=== PATIENT | female | born 1930 | race Caucasian/White ===

== ENCOUNTER 2017-07-16 14:08 | Observation (INO) | payer OTHER ==
--- NOTE | 2017-07-16 14:34 | CPEKG ---
Heart Rate: 79 RR Interval: 759 P-R Interval: 240 QRSD Interval: 160 QT Interval: 432 QTC Interval: 496 P [place]: 32 QRS [place]: 67 T Wave [place]: -28 EKG Severity - ABNORMAL ECG - EKG Impression: POSSIBLE ATRIAL ARRHYTHMIA, A-RATE 214 EKG Impression: RIGHT BUNDLE BRANCH BLOCK Electronically Signed By: Gelacio Brandt 16-Jul-2017 15:58:35
[2017-07-16 15:01] LABS: % IMMATURE GRANULYOCYTES 0.6 % (0.0-1.1); ABSOLUTE IMMATURE GRANULOCYTES 0.12 10^3/uL (0.00-0.10); ADD DIFF? NO; ADD MORPH? NO; ADD SCAN? NO; ATYPICAL LYMPHOCYTE FLAG 0 (0-99); FRAGMENT RBC FLAG 10 (0-99); HEMATOCRIT 40.4 % (38.0-47.0); HEMOGLOBIN 13.8 g/dL (12.6-16.3); LEFT SHIFT FLG 0 (0-99); LIPEMIA HEMOLYSIS FLAG 90 (0-99); MEAN CELL HEMOGLOBIN 31.1 pg (27.9-34.1); MEAN CELL HEMOGLOBIN CONCENTR. 34.2 g/dL (32.4-36.7); MEAN PLATELET VOLUME 10.8 fL (8.7-11.7); PLATELET CLUMPS FLAG 10 (0-99); PLATELET COUNT 234 10^3/uL (150-400); RED BLOOD CELL COUNT 4.44 10^6/uL (4.18-5.33); RED CELL DISTRIBUTION WIDTH 13.2 % (11.5-15.2)
[2017-07-16 15:04] LABS: ANION GAP 12 mEq/L (8-16); CALCIUM 9.5 mg/dL (8.5-10.4); CARBON DIOXIDE 22 mEq/l (22-31); CHLORIDE 106 mEq/L (97-110); CREATININE 1.1 mg/dL (0.6-1.0); GLOMERULAR FILTRATION RATE 47; GLUCOSE 144 mg/dL (70-100); POTASSIUM 4.8 mEq/L (3.5-5.2); SODIUM 140 mEq/L (134-144)
[2017-07-16 15:16] LABS: TROPONIN I 0.013 ng/mL (0.000-0.034)
--- NOTE | 2017-07-16 15:45 | EDPHY ---
H & P Stated Complaint: SOB and chest tightness beginning this am Time Seen by Provider: 07/16/17 14:31 HPI/ROS: CHIEF COMPLAINT: Dyspnea HISTORY OF PRESENT ILLNESS: The patient presents to the ED with a 1 day history of dyspnea. The patient did have some chest discomfort and elevated blood pressure prior to arrival. The patient has a history of known coronary artery disease. She is status post CABG approximately 24 years ago. The patient did have a myocardial infarction a little over a year ago and was told that she is not a candidate for PCI therapy. The patient has had a slight cough today. She denies asymmetric calf pain or swelling. The patient denies fever. She denies dysuria. She denies abdominal pain or significant weight gain. The patient does use home oxygen and did increase her oxygen use today. REVIEW OF SYSTEMS: A comprehensive 10 point review of systems is otherwise negative aside from elements mentioned in the history of present illness. Source: Patient, Family Exam Limitations: No limitations - Personal History Current Tetanus/Diphtheria Vaccine: Unsure - Medical/Surgical History Hx Asthma: No Hx Chronic Respiratory Disease: No Hx Diabetes: No Hx Cardiac Disease: Yes Hx Renal Disease: Yes Hx Cirrhosis: No Hx Alcoholism: No Hx HIV/AIDS: No Hx Splenectomy or Spleen Trauma: No Other PMH: PMH- CAD, M1 02/16, HTN, COPD, 1 working kidney. PSH- CABG, bi-lat HIP's (with hardware) REPLACEMENT. HYSTERECTOMY,CHOLY, APPY, sleep apnea, chf w / le edema - Social History Smoking Status: Never smoked - Physical Exam Exam: General Appearance: Obese female, no acute distress Eyes: Pupils equal and round no pallor or injection ENT, Mouth: Moist mucous membranes Respiratory: Scant expiratory wheezing Cardiovascular: Regular rate and rhythm Gastrointestinal: Abdomen is soft and nontender, no masses, bowel sounds normal Neurological: A&O, normal motor function, normal sensory exam, normal cranial nerves Skin: Warm and dry, no rashes Musculoskeletal: Neck is supple nontender Extremities: symmetrical, full range of motion Constitutional: Initial Vital Signs Temperature (C) 36.8 C 07/16/17 14:16 Heart Rate 81 07/16/17 14:16 Respiratory Rate 18 07/16/17 14:16 Blood Pressure 124/59 H 07/16/17 14:16 O2 Sat (%) 91 L 07/16/17 14:16 O2 Delivery Mode Nasal Cannula O2 (L/minute) 2 Allergies/Adverse Reactions: morphine Allergy (Verified 06/24/16 19:46) NAUSEA Penicillins Allergy (Verified 06/24/16 19:46) Rash Home Medications: Medication Instructions Recorded Aspirin [Aspirin 325 mg (*)] 325 mg PO DAILY 02/13/14 Isosorbide Mononitrate [Imdur 30 30 mg PO DAILY 02/13/14 mg (*)] Carvedilol 12.5 mg PO BIDMEAL 06/24/16 Herbals/Supplements -Info Only 1 ea PO DAILY 06/24/16 hydrALAZINE [Apresoline 10 mg (*)] 10 mg PO BIDMEAL 06/24/16 Nitroglycerin 0.4 mg SL Q5M PRN #100 tab 06/26/16 Medical Decision Making - Diagnostics EKG Interpretation: EKG: Complete interpretation has been separately recorded in the [facility] archive. Summary impression: Sinus rhythm, right bundle branch block Imaging Results: Imaging Impressions Chest X-Ray 07/16/17 15:34 Impression: 1. Postoperative changes from previous open heart surgery. 2. Mild prominent interstitial markings at the lung bases posteriorly. This could be related to mild dependent edema. ED Course/Re-evaluation: The patient presents to the ED for evaluation of dyspnea, improved chest pain and generalized weakness. The patient reportedly did have markedly elevated blood pressure earlier today at home in the 220/100 range. The patient arrives to the emergency department with an improved blood pressure. The patient was noted to be mildly hypoxemic. She does use oxygen as needed at night. The patient's chest x-ray demonstrates mild pulmonary venous congestion consistent with her exam. The patient's EKG demonstrates no evidence of ST segment elevation and her initial troponin is normal. The patient's proBNP level is elevated at 5000. The patient did receive 20 mg of IV Lasix in the emergency department. She will be admitted to the hospital for observation of her blood pressure and response to diuretic therapy. The patient did have some chest pain earlier today which resolved. Consultation was made with the hospitalist service at 5:00 p.m.. The patient will be admitted by Dr. Rojas Differential Diagnosis: Differential diagnosis considered includes congestive heart failure, pneumonia, arrhythmia, anemia, metabolic abnormality - Data Points Laboratory Results: Laboratory Results 07/16/17 14:40 07/16/17 14:40 07/16/17 07/16/17 14:40 14:40 WBC 20.02 10^3/uL H 10^3/uL (3.80-9.50) RBC 4.44 10^6/uL 10^6/uL (4.18-5.33) Hgb 13.8 g/dL g/dL (12.6-16.3) Hct 40.4 % % (38.0-47.0) MCV 91.0 fL fL (81.5-99.8) MCH 31.1 pg pg (27.9-34.1) MCHC 34.2 g/dL g/dL (32.4-36.7) RDW 13.2 % % (11.5-15.2) Plt Count 234 10^3/uL 10^3/uL (150-400) MPV 10.8 fL fL (8.7-11.7) Neut % (Auto) 89.9 % H % (39.3-74.2) Lymph % (Auto) 3.9 % L % (15.0-45.0) [place] % (Auto) 4.4 % L % (4.5-13.0) Eos % (Auto) 0.7 % % (0.6-7.6) Baso % (Auto) 0.5 % % (0.3-1.7) Nucleat RBC Rel Count 0.0 % % (0.0-0.2) Absolute Neuts (auto) 17.98 10^3/uL H 10^3/uL (1.70-6.50) Absolute Lymphs (auto) 0.79 10^3/uL L 10^3/uL (1.00-3.00) Absolute Monos (auto) 0.89 10^3/uL H 10^3/uL (0.30-0.80) Absolute Eos (auto) 0.14 10^3/uL 10^3/uL (0.03-0.40) Absolute Basos (auto) 0.10 10^3/uL 10^3/uL (0.02-0.10) Absolute Nucleated RBC 0.00 10^3/uL 10^3/uL (0-0.01) Immature Gran % 0.6 % % (0.0-1.1) Immature Gran # 0.12 10^3/uL H 10^3/uL (0.00-0.10) Sodium 140 mEq/L mEq/L (134-144) Potassium 4.8 mEq/L mEq/L (3.5-5.2) Chloride 106 mEq/L mEq/L (97-110) Carbon Dioxide 22 mEq/l mEq/l (22-31) Anion Gap 12 mEq/L mEq/L (8-16) BUN 32 mg/dL H mg/dL (7-23) Creatinine 1.1 mg/dL H mg/dL (0.6-1.0) Estimated GFR 47 Glucose 144 mg/dL H mg/dL (70-100) Calcium 9.5 mg/dL mg/dL (8.5-10.4) Troponin I 0.013 ng/mL ng/mL (0.000-0.034) NT-Pro-B Natriuret Pep 5580 pg/mL H pg/mL (0-450) Departure - Departure Disposition: [facility] Acute Clinical Impression: Congestive heart failure, Hypertension
[2017-07-16] MEDS ORDERED: FUROSEMIDE 20 MG/2 ML VIAL IVP ONE (16:51)
[2017-07-16] MEDS ORDERED: ACETAMINOPHEN 325 MG TAB PO PRN (17:17)
[2017-07-16] MEDS ORDERED: ONDANSETRON DISINTEGRATING 4 MG TAB PO PRN (17:17)
[2017-07-16] MEDS ORDERED: ONDANSETRON 4 MG/2 ML VIAL IVP PRN (17:17)
[2017-07-16] MEDS ORDERED: NITROGLYCERIN 0.4 MG BTL SL PRN (17:34)
--- NOTE | 2017-07-16 18:11 | PDGENHP ---
History and Physical - Chief Complaint Acute shortness of breath - History of Present Illness Primary care provider: Dr. Kim Boggs Primary petrophysicist: Dr. Eric White HPI: 87-year-old female presenting with acute shortness of breath characterized as visible dyspnea with associated diffuse chest discomfort and nonproductive cough occurring over the past several days, and acutely worsening on the day of this presentation. Shortness of breath is somewhat alleviated by putting on supplemental oxygen, and was somewhat exacerbated by a significant amount of physical activity yesterday. On the day of this presentation, the patient notes some myalgias, chills, elevated systolic blood pressure around 10: 00 a.m. of approximately 215. She had otherwise taken all of her home medications. The patient's daughter does note that the engaged in an abnormally high level of physical exertion on the day prior to this presentation. The patient has noted chronic lower extremity edema, left greater than right, with mild increase in visible veins in the left ankle. History Information - Allergies/Home Medication List Allergies/Adverse Reactions: morphine Allergy (Verified 06/24/16 19:46) NAUSEA Penicillins Allergy (Verified 06/24/16 19:46) Rash Home Medications: Aspirin [Aspirin 325 mg (*)] 325 mg PO HS 02/13/14 [Last Taken 07/16/17 08:00] Carvedilol 12.5 mg PO BIDMEAL 06/24/16 [Last Taken 07/16/17 08:00] hydrALAZINE [Apresoline 10 mg (*)] 10 mg PO BIDMEAL 06/24/16 [Last Taken 08:00] Isosorbide Mononitrate [Imdur 30 mg (*)] 30 mg PO DAILY 07/16/17 [Last Taken 06/22 08:00] Multivitamins [Multivitamin (*)] 1 tab PO DAILY 07/16/17 [Last Taken 07/16/17 08 :00] I have personally reviewed and updated: family history, medical history, social history, surgical history - Past Medical History coronary artery disease ( With CABG approximately 20 years ago and subsequent non ST elevation myocardial infarction in 2013, patient declined cardiac catheterization at that time elected for medical management), CHF ( diastolic, chronic), hypertension Additional medical history: chronic kidney disease stage 3 with baseline creatinine 1.2-1.3 ; pulmonary hypertension - Surgical History Reports: coronary bypass surgery ( approximately 20 years ago) Additional surgical history: right total hip replacement - Family History Additional family history: no coronary disease, no recent sick family contacts - Social History Smoking Status: Never smoked Alcohol Use: None Drug Use: None Additional social history: independent in her ADLs, daughter lives locally Review of Systems Review of Systems: ROS: 10pt was reviewed & negative except for what was stated in HPI & below Constitutional: Reports: chills, weakness Cardiac: Reports: chest pain Respiratory: Reports: cough, shortness of breath Physical Exam Physical Exam: Temp Pulse Resp BP Pulse Ox 36.8 C 78 18 162/78 H 96 07/16/17 14:16 07/16/17 16:50 07/16/17 16:50 07/16/17 17:43 07/16/17 16:50 Constitutional: no apparent distress, not in pain, other (Aged appearing), No uncomfortable Eyes: PERRL, anicteric sclera, EOMI Ears, Nose, Mouth, Throat: moist mucous membranes, ears appear normal, no oral mucosal ulcers, hard of hearing Cardiovascular: systolic murmur (1/6 systolic murmur at the sternum, distant heart sounds), edema (1+ bilateral lower extremity edema, left greater than right), No irregularly irregular, No tachycardia Respiratory: inspiratory crackles (Bilateral bases), No reduced air movement, No expiratory wheeze, No bronchial breath sounds, No respiratory distress Gastrointestinal: normoactive bowel sounds, soft, non-tender abdomen, no palpable masses, No distension Genitourinary: no bladder fullness, no bladder tenderness Neurologic: AAOx3, sensation intact bilaterally, No weakness, No facial droop Psychiatric: interacting appropriately, not anxious, not encephalopathic, thought process linear Lab Data & Imaging Review 07/16/17 14:40 07/16/17 14:40 WBC 20.02 10^3/uL (3.80-9.50) H 07/16/17 14:40 RBC 4.44 10^6/uL (4.18-5.33) 07/16/17 14:40 Hgb 13.8 g/dL (12.6-16.3) 07/16/17 14:40 Hct 40.4 % (38.0-47.0) 07/16/17 14:40 MCV 91.0 fL (81.5-99.8) 07/16/17 14:40 MCH 31.1 pg (27.9-34.1) 07/16/17 14:40 MCHC 34.2 g/dL (32.4-36.7) 07/16/17 14:40 RDW 13.2 % (11.5-15.2) 07/16/17 14:40 Plt Count 234 10^3/uL (150-400) 07/16/17 14:40 MPV 10.8 fL (8.7-11.7) 07/16/17 14:40 Neut % (Auto) 89.9 % (39.3-74.2) H 07/16/17 14:40 Lymph % (Auto) 3.9 % (15.0-45.0) L 07/16/17 14:40 [place] % (Auto) 4.4 % (4.5-13.0) L 07/16/17 14:40 Eos % (Auto) 0.7 % (0.6-7.6) 07/16/17 14:40 Baso % (Auto) 0.5 % (0.3-1.7) 07/16/17 14:40 Nucleat RBC Rel Count 0.0 % (0.0-0.2) 07/16/17 14:40 Absolute Neuts (auto) 17.98 10^3/uL (1.70-6.50) H 07/16/17 14:40 Absolute Lymphs (auto) 0.79 10^3/uL (1.00-3.00) L 07/16/17 14:40 Absolute Monos (auto) 0.89 10^3/uL (0.30-0.80) H 07/16/17 14:40 Absolute Eos (auto) 0.14 10^3/uL (0.03-0.40) 07/16/17 14:40 Absolute Basos (auto) 0.10 10^3/uL (0.02-0.10) 07/16/17 14:40 Absolute Nucleated RBC 0.00 10^3/uL (0-0.01) 07/16/17 14:40 Immature Gran % 0.6 % (0.0-1.1) 07/16/17 14:40 Immature Gran # 0.12 10^3/uL (0.00-0.10) H 07/16/17 14:40 Sodium 140 mEq/L (134-144) 07/16/17 14:40 Potassium 4.8 mEq/L (3.5-5.2) 07/16/17 14:40 Chloride 106 mEq/L (97-110) 07/16/17 14:40 Carbon Dioxide 22 mEq/l (22-31) 07/16/17 14:40 Anion Gap 12 mEq/L (8-16) 07/16/17 14:40 BUN 32 mg/dL (7-23) H 07/16/17 14:40 Creatinine 1.1 mg/dL (0.6-1.0) H 07/16/17 14:40 Estimated GFR 47 07/16/17 14:40 Glucose 144 mg/dL (70-100) H 07/16/17 14:40 Calcium 9.5 mg/dL (8.5-10.4) 07/16/17 14:40 Troponin I 0.013 ng/mL (0.000-0.034) 07/16/17 14:40 NT-Pro-B Natriuret Pep 5580 pg/mL (0-450) H 07/16/17 14:40 Visualized and Interpreted Chest x-ray results: Yes Chest X-Ray results: other (Bilateral interstitial infiltrates) Visualized and Interpreted EKG results: Yes EKG Interpretation: Positive for: other (Normal sinus mechanism with a 1st degree AV block, right bundle branch block) Assessment & Plan Assessment: 87-year-old female presents with acute diastolic congestive heart failure exacerbation in the setting of possible viral URI Plan: 1. Acute diastolic congestive heart failure exacerbation. Evidenced by bilateral lower extremity edema, interstitial infiltrates on chest x-ray, BNP of 5500, recently uncontrolled hypertension -patient has historically been on a diuretic but has not been on 1 recently, reinitiate Lasix low-dose at 20 mg twice daily after receiving 40 mg IV Lasix this evening -monitor strict I&Os, daily weights, gauge effect -given the patient has elected not to proceed with any further cardiac intervention, the utility of an echocardiogram is relatively low at this time and supportive care with diuretics may be more appropriate -recommend establishing the patient with outpatient transitional care for additional assistance -continue monitoring electrolytes -get D-dimer to evaluate edema, positive get lower extremity ultrasound 2. Possible upper respiratory tract infection. Acute, new problem this provider, further workup indicated. Symptoms including myalgias, chills, weakness, with recently elevated white blood cell count and neutrophil predominance, suggest possible recent URI -reviewed outside records including 06/25/2016 white blood cell count, elevated at 11,400 thousand four hundred, indicating chronic leukocytosis, but without this degree of elevation -get respiratory viral panel at this time 3. Coronary artery disease. Chronic, status post non ST-elevation myocardial infarction in 2013, patient electing for no further cardiac evaluation -continue aspirin, beta-kurtis 4. Hypertension. Chronic, reviewed outside records including 08/26/[address] Otis Waldron, patient experienced hypertensive emergency but elected for no further intervention after blood pressure was effectively treated, she was discharged to a penitentiary facility at that time 5. COPD. Chronic, the patient does not have a history of chronic hypoxic respiratory failure, per patient and her daughter, she does not utilize oxygen at baseline -continue attempts to wean supplemental oxygen 6. Chronic kidney disease stage 3. Baseline creatinine is 1.2-1.3, monitor closely Diet. Cardiac Prophylaxis. High risk patient, Lovenox 30 Code. Do not resuscitate, daughter is MD [place] Disposition. Anticipated discharge is 07/17/2017, pending further workup and treatment as outlined above. Patient will be reassessed by therapy modalities to see if she requires complete assistance with ADLs comma may require penitentiary facility for rehab. I have discussed patient's presentation with Dr. Luis Alfredo Brandt, we both agree the patient requires further workup at this time.
[2017-07-16] MEDS: CARVEDILOL 6.25 MG TAB PO SCH (19:14)
[2017-07-16] MEDS: hydrALAZINE 10 MG TAB PO SCH (19:14)
[2017-07-16] MEDS ORDERED: ASPIRIN 325 MG TAB PO SCH (21:00)
[2017-07-17 05:51] LABS: ANION GAP 12 mEq/L (8-16); CALCIUM 9.1 mg/dL (8.5-10.4); CARBON DIOXIDE 24 mEq/l (22-31); CHLORIDE 107 mEq/L (97-110); CREATININE 1.2 mg/dL (0.6-1.0); GLOMERULAR FILTRATION RATE 42; GLUCOSE 78 mg/dL (70-100); MAGNESIUM 1.9 mg/dL (1.6-2.3); POTASSIUM 4.3 mEq/L (3.5-5.2); SODIUM 143 mEq/L (134-144)
[2017-07-17 06:21] LABS: COLOR YELLOW; LEUKOCYTE ESTERASE,URINE 3+ (NEGATIVE); NITRITE,URINE NEGATIVE (NEGATIVE)
[2017-07-17 06:23] LABS: WBC,URINE 25-50 /hpf (0-3)
[2017-07-17] MEDS ORDERED: ENOXAPARIN 40 MG/0.4 ML SYR SC SCH ×2 (09:00)
[2017-07-17] MEDS ORDERED: FUROSEMIDE 20 MG TAB PO SCH (09:00)
[2017-07-17] MEDS ORDERED: ISOSORBIDE MONONITRATE 30 MG TAB.SR PO SCH (09:00)
[2017-07-17] MEDS ORDERED: MULTIVITAMINS 1 EACH TAB PO SCH (09:00)
[2017-07-17] MEDS: hydrALAZINE 10 MG TAB PO SCH (10:28)
[2017-07-17] MEDS: CARVEDILOL 6.25 MG TAB PO SCH (10:28)
--- NOTE | 2017-07-17 11:32 | PDDCSUM ---
Discharge Summary Discharge Summary: DISCHARGE DIAGNOSES: -acute diastolic CHF exacerbation -acute upper respiratory infection -noncompliance with low-salt diet -history of coronary artery disease, nothing to suggest acute ischemic disease at this time -history of chronic leg edema and stasis ulcers, no evidence of skin ulcers at this time PROCEDURES: Doppler ultrasound of the legs without evidence of DVT HOSPITAL COURSE SUMMARY: This patient came in with fatigue and dyspnea for approximately 2 days. She had had some coughing chills and myalgias but has not had fever here so far. Her cough has been dry. She also has been poorly compliant with salt intake at home and had several slices of pepperoni pizza in the 2 days before presentation. She is not currently on a diuretic as she had developed some renal failure previously on diuretics. She has had no angina, no palpitations, but her leg edema has been worse over the last few days than usual for her. She does have some chronic leg edema. There is a history of stasis ulcers in the past but she does not have any skin lesions at this time. Here she was treated with diuretics to which she has responded quite well. Her edema is less, her breathing is back to her baseline, and she is ambulating with these in the hallway on room air. She did get some sleep overnight. Her pressures have intermittently been moderately elevated here. There been no a arrhythmias on awake overnight monitor. She had a Doppler ultrasound and there is no DVT in her legs. She had normal troponin. The chest x-ray showed some mild pulmonary edema at admission but no evidence of pneumonia. At this time she is felt stable for discharge to home. I have reviewed with the patient and her daughter at the bedside in detail the importance of the 2 g sodium diet, leg elevation and compression stockings. Particularly with her blood pressure uncontrolled I would look to adding back some diuretic but perhaps starting with every other day diuretic, recheck her blood pressures and her creatinine and then make further plans after that. She will make an appointment with Dr. Mock to follow-up on this. PENDING TEST RESULTS: None MEDICATION CHANGES: Addition of Lasix 20 mg every other day FOLLOW-UP PLAN: With Dr. Mock in 7-10 days Greater than 35 minutes bedside and care coordination time today
--- NOTE | 2017-07-17 11:33 | ASMTCMCOM ---
CM Note CM Note Notes: 07/17/2017 Case Management Note Met w/pt and daughter Veronica [phone]. Pt lives at [facility] in [place]. She has light housekeeping and can have meals delivered to her room. Her daugher provides transportation when pt has errands to run. She has a lifealert and staff from [facility] will check on pt on a daily basis. She uses [employer] for her home O2 needs. PT evaluated pt and recommended home. There are no case management d/c needs identified. Case Management d/c poc: Home with family support. Date Signed: 07/17/2017 11:33 AM Electronically Signed By:Fela Black RN
[2017-07-17 12:14] VITALS: BP 145/91; PULSE 67; RESP 18; TEMP 98; O2SAT 93
--- NOTE | 2017-07-17 16:57 | ASDISCHSUM ---
Discharge Information Plan Status:Home with No Needs Medically Cleared to Leave:07/16/2017 Discharge Date:07/17/2017 02:07 PM CM D/C Disposition:Home, Routine, Self-Care ADT D/C Disposition:Home, Routine, Self-Care Projected Discharge Date:07/17/2017 02:07 PM Transportation at D/C:Family Discharge Delay Reason: Follow-Up Date:07/17/2017 02:07 PM Discharge Slot: Final Diagnosis: Placement Information Patient Contact Information Contact Name:HANANE Relationship:Daughter Address:[address] [place] Work Phone: City:[place] Alternate Phone: State/Zip Code:[place] [address] Email: Financial Information Financial Class:Medicare Advantage Plans Primary Plan Desc:[facility] [employer] PLANS Primary Plan Number:[id number] Secondary Plan Desc: Secondary Plan Number: Assessment Information [facility] CM Progress Note CM Note CM Note Notes: 07/17/2017 Case Management Note Met w/pt and daughter Veronica [phone]. Pt lives at [facility] in [place]. She has light housekeeping and can have meals delivered to her room. Her daugher provides transportation when pt has errands to run. She has a lifealert and staff from [facility] will check on pt on a daily basis. She uses [employer] for her home O2 needs. PT evaluated pt and recommended home. There are no case management d/c needs identified. Case Management d/c poc: Home with family support. Date Signed: 07/17/2017 11:33 AM Electronically Signed By:Fela Black RN LACE LACE Length of stay for Answers: Less than 1 day current admission Acuity / Level of Care Answers: Was the patient admitted to hospital via the emergency department? Yes: Comorbidities - select Answers: Previous myocardial all that apply infarction Congestive heart failure Mild liver or renal disease Emergency dept visits in Answers: 0 last 6 months Score: 8 Date Signed: 07/17/2017 11:43 AM Electronically Signed By:Fela Black RN Intervention Information Intervention Type:*COLLAZO-Signed Date of Service:07/17/2017 11:25 AM Patient Type:Observation Staff Member:Rajni Carranza Hours: Discipline: Severity: Comment:
== END 2017-07-17 14:07 | disposition home or self-care (01) ==
LOC: F2W 17:18
PROVIDERS: ADMIT Internal Medicine; ATTEND Internal Medicine
DX: I50.31 Acute diastolic (congestive) heart failure (principal); Z91.11 Patient's noncompliance with dietary regimen; I13.0 Hypertensive heart and chronic kidney disease with heart failure and stage 1 through stage 4 chronic kidney disease, or unspecified chronic kidney disease; N18.3 Chronic kidney disease, stage 3 (moderate); J06.9 Acute upper respiratory infection, unspecified; I25.10 Atherosclerotic heart disease of native coronary artery without angina pectoris; Z95.1 Presence of aortocoronary bypass graft; I25.2 Old myocardial infarction; I87.303 Chronic venous hypertension (idiopathic) without complications of bilateral lower extremity; J44.9 Chronic obstructive pulmonary disease, unspecified; Z96.643 Presence of artificial hip joint, bilateral; G47.33 Obstructive sleep apnea (adult) (pediatric); I27.29 Other secondary pulmonary hypertension; E66.09 Other obesity due to excess calories; Z68.25 Body mass index [BMI] 25.0-25.9, adult
CPT/HCPCS: 71020; 93005; 93970; 97161; 97165; G0378; G8978; G8979; G8980; G8987; G8988; G8989; J1650; J1940; 96374

== ENCOUNTER 2018-06-05 16:28 | Inpatient (IN) | payer OTHER ==
[2018-06-05] MEDS ORDERED: FUROSEMIDE 40 MG/4 ML VIAL IVP ONE (17:10)
--- NOTE | 2018-06-05 17:11 | EDPHY ---
H & P Stated Complaint: fever, cough Time Seen by Provider: 06/05/18 17:01 HPI/ROS: CHIEF COMPLAINT: Shortness of breath, fever HISTORY OF PRESENT ILLNESS: The patient is a 88-year-old female with a history of coronary artery disease post CABG, CHF, chronic kidney disease and pulmonary hypertension who presents to the emergency department complaining of shortness of breath and fever. She states that her symptoms began yesterday. Her daughter reports that she did not take her Lasix for the last 5 days because her family was in town and she did not want to have to pee so often. She has not noticed any increased swelling. The patient does complain of a sore throat. She did get a flu shot this year. She is slightly hypoxic on room air. She typically wears oxygen at night but not during the day. Severity: Moderate Modifying factors: None REVIEW OF SYSTEMS: Constitutional: See HPI EENTM: denies: blurred vision, double vision, nose congestion Respiratory: See HPI Cardiac: denies: chest pain, irregular heart rate, lightheadedness, palpitations Gastrointestinal/Abdominal: denies: abdominal pain, diarrhea, nausea, vomiting, blood streaked stools Genitourinary: denies: dysuria, frequency, hematuria, pain Musculoskeletal: denies: joint pain, muscle pain Skin: denies: lesions, rash, jaundice, bruising Neurological: denies: headache, numbness, paresthesia, tingling, dizziness, weakness Hematologic/Lymphatic: denies: blood clots, easy bleeding, easy bruising Immunologic/allergic: denies: HIV/AIDS, transplant 10 systems reviewed and negative except as noted EXAM: GENERAL: Well-appearing, well-nourished and in no acute distress. HEAD: Atraumatic, normocephalic. EYES: Pupils equal round and reactive to light, extraocular movements intact, sclera anicteric, conjunctiva are normal. ENT: TMs normal, nares patent, oropharynx clear without exudates. Moist mucous membranes. NECK: Normal range of motion, supple without lymphadenopathy or JVD. LUNGS: Right upper and lower rhonchi HEART: Regular rate and rhythm without murmurs, rubs or gallops. ABDOMEN: Soft, nontender, normoactive bowel sounds. No guarding, no rebound. No masses appreciated. BACK: No CVA tenderness, no spinal tenderness, step-offs or deformities EXTREMITIES: Normal range of motion, no pitting or edema. No clubbing or cyanosis. NEUROLOGICAL: Cranial nerves II through XII grossly intact. Normal speech, normal gait. 5/5 strength, normal movement in all extremities, normal sensation , normal reflexes PSYCH: Normal mood, normal affect. SKIN: Warm, dry, normal turgor, no visible rashes or lesions. Source: Patient Exam Limitations: No limitations - Personal History Current Tetanus/Diphtheria Vaccine: Yes Current Tetanus Diphtheria and Acellular Pertussis (TDAP): Yes - Medical/Surgical History Hx Asthma: No Hx Chronic Respiratory Disease: No Hx Diabetes: No Hx Cardiac Disease: Yes Hx Renal Disease: Yes Hx Cirrhosis: No Hx Alcoholism: No Hx HIV/AIDS: No Hx Splenectomy or Spleen Trauma: No Other PMH: PMH- CAD, M1 02/16, HTN, COPD, 1 working kidney. PSH- CABG, bi-lat HIP's (with hardware) REPLACEMENT. HYSTERECTOMY,CHOLY, APPY, sleep apnea, chf w / le edema - Family History Significant Family History: No pertinent family hx - Social History Smoking Status: Never smoked Alcohol Use: Sober Drug Use: None Constitutional: Initial Vital Signs Temperature (C) 38.8 C H 06/05/18 16:35 Respiratory Rate 16 06/05/18 16:35 Blood Pressure 177/91 H 06/05/18 16:35 O2 Sat (%) 89 L 06/05/18 16:35 O2 Delivery Mode Nasal Cannula O2 (L/minute) 2 Allergies/Adverse Reactions: morphine Allergy (Verified 06/05/18 16:34) NAUSEA Penicillins Allergy (Verified 06/05/18 16:34) Rash Home Medications: Medication Instructions Recorded Aspirin [Aspirin 325 mg (*)] 325 mg PO HS 02/13/14 Carvedilol 12.5 mg PO BIDMEAL 06/24/16 hydrALAZINE [Apresoline 10 mg (*)] 10 mg PO BIDMEAL 06/24/16 Nitroglycerin 0.4 mg SL Q5M PRN #100 tab 06/26/16 Isosorbide Mononitrate [Imdur 30 30 mg PO DAILY 07/16/17 mg (*)] Multivitamins [Multivitamin (*)] 1 tab PO DAILY 07/16/17 Furosemide [Lasix 20 MG (*)] 20 mg PO Q2D #30 tab 07/17/17 Herbals/Supplements -Info Only 1 ea PO DAILY 06/05/18 Medical Decision Making - Diagnostics EKG Interpretation: An EKG obtained and was read and documented in trace view. Please see trace view for full reading and report. Sinus rhythm right bundle branch block with repolarization abnormality and PVCs, similar to previous Imaging: Discussed imaging studies w/ call worker Radiologist ED Course/Re-evaluation: Patient's x-rays consistent with mild CHF. She has not taken her Lasix for the last several days. I will give her dose here. 7:00 p.m. I discussed the case with Dr. Preston who will admit to the PCU. Patient is received Lasix. Her right advice is also positive. Troponin is slightly elevated this is likely from the fluid overload. Differential Diagnosis: Partial list of the Differential diagnosis considered include but were not limited to; CHF, COPD, reactive airway disease, and although unlikely based on the history and physical exam, I also considered PE, acute coronary disease. Critical Care Time: Critical care time spent by me, Dr. Avalos exclusive with this patient was 35 minutes, exclusive of the PA time exclusive of procedures. The organ system that was at risk was pulmonary and I gave diagnostics, medications, consultation and admission to prevent worsening of the patient's condition - Data Points Laboratory Results: Laboratory Results 06/05/18 18:15 06/05/18 18:15 06/05/18 05:21 Urine Color YELLOW Urine Appearance HAZY Urine pH 5.0 (5.0-7.5) Ur Specific [place] 1.011 (1.002-1.030) Urine Protein NEGATIVE (NEGATIVE) Urine Ketones NEGATIVE (NEGATIVE) Urine Blood NEGATIVE (NEGATIVE) Urine Nitrate NEGATIVE (NEGATIVE) Urine Bilirubin NEGATIVE (NEGATIVE) Urine Urobilinogen NEGATIVE EU EU (0.2-1.0) Ur Leukocyte Esterase 3+ H (NEGATIVE) Urine RBC 1-3 /hpf /hpf (0-3) Urine WBC 15-25 /hpf H /hpf (0-3) Ur Epithelial Cells TRACE /lpf /lpf (NONE-1+) Urine Bacteria TRACE /hpf H /hpf (NONE SEEN) Hyaline Casts 1-5 /lpf /lpf (0-1) Urine Mucus TRACE /lpf /lpf (NONE-1+) Urine Glucose NEGATIVE (NEGATIVE) Microbiology Results: MICROBIOLOGY 06/05/18 16:40 Nasal, Sinus - [place] Viral Transport Respiratory Panel ( PCR) - Final Human Rhinovirus/Enterovirus Medications Given: Albuterol/Ipratropium (Duoneb) 3 ml IH QID [facility] Stop: 12/02/18 20:59 Last Admin: 06/06/18 11:20 Dose: 3 ml Atorvastatin Calcium (Lipitor) 80 mg PO DAILY [facility] Stop: 12/03/18 08:59 Last Admin: 06/06/18 10:14 Dose: 80 mg Carvedilol (Coreg) 25 mg PO BIDMEAL [facility] Stop: 12/03/18 07:59 Last Admin: 06/06/18 10:13 Dose: 25 mg Furosemide (Lasix Injection) 20 mg IVP BIDDIUR [facility] Stop: 12/03/18 08:59 Last Admin: 06/06/18 10:14 Dose: 20 mg Hydralazine HCl (Apresoline) 10 mg PO BIDMEAL [facility] Stop: 12/03/18 07:59 Last Admin: 06/06/18 10:14 Dose: 10 mg Heparin Sodium (Porcine) (Heparin 50 Units/Ml (Premix)) 500 mls @ 0 mls/hr IV CONT JOHANN; Per Protocol PRN Reason: Protocol Stop: 12/03/18 08:44 Last Admin: 06/06/18 13:42 Dose: 500 mls Isosorbide Mononitrate (Imdur) 30 mg PO DAILY [facility] Stop: 12/03/18 08:59 Last Admin: 06/06/18 10:13 Dose: 30 mg Melatonin (Melatonin) 3 - 6 mg PO HS PRN PRN Reason: Sleep/Insomnia Stop: 12/03/18 00:30 Last Admin: 06/06/18 02:29 Dose: 3 mg Multivitamins (Tab-A-Jocelynn) 1 each PO DAILY [facility] Stop: 12/03/18 08:59 Last Admin: 06/06/18 10:13 Dose: 1 each Discontinued Medications Acetaminophen (Tylenol) 1,000 mg PO EDNOW ONE Stop: 06/05/18 19:03 Last Admin: 06/05/18 19:10 Dose: 1,000 mg Furosemide (Lasix Injection) 20 mg IVP EDNOW ONE Stop: 06/05/18 17:11 Last Admin: 06/05/18 18:22 Dose: 20 mg Point of Care Test Results: Chemistry 06/05/18 18:28 POC Troponin I 0.19 ng/mL H ng/mL (0.00-0.08) Departure - Departure Disposition: [facility] Inpatient Acute Clinical Impression: Congestive heart failure Qualifiers: Heart failure type: unspecified Heart failure chronicity: acute Qualified Code( s): I50.9 - Heart failure, unspecified Acute bronchitis Qualifiers: Bronchitis organism: rhinovirus Qualified Code(s): J20.6 - Acute bronchitis due to rhinovirus Condition: Fair
--- NOTE | 2018-06-05 18:38 | CPEKG ---
Test Reason : OPEN Blood Pressure : / mmHG Vent. Rate : 084 BPM Atrial Rate : 085 BPM P-R Int : 252 ms QRS Dur : 148 ms QT Int : 402 ms P-R-T Axes : 106 086 -45 degrees QTc Int : 476 ms Sinus rhythm Multiple ventricular premature complexes Prolonged NJ interval Right bundle branch block ST depression, consider ischemia, lateral lds Confirmed by Arturo Avalos ([id number]) on 06/05/2018 6:37:38 PM Referred By: Confirmed By:Arturo Avalos
[2018-06-05 18:42] LABS: PLATELET COUNT 192 10^3/uL (150-400)
[2018-06-05 18:50] LABS: INR 1.09 (0.83-1.16); PROTIME(PATIENT) 14.3 SEC (12.0-15.0)
[2018-06-05] MEDS ORDERED: ACETAMINOPHEN 500 MG TAB PO ONE (19:02)
[2018-06-05] MEDS ORDERED: HYDROCODONE/APAP 5/325 TAB PO PRN (19:41)
[2018-06-05] MEDS ORDERED: oxyCODONE IR 5 MG TAB PO PRN (19:41)
[2018-06-05] MEDS ORDERED: ONDANSETRON DISINTEGRATING 4 MG TAB PO PRN (19:41)
[2018-06-05] MEDS ORDERED: ACETAMINOPHEN 325 MG TAB PO PRN (19:41)
[2018-06-05] MEDS ORDERED: ALBUTEROL 3 ML DEYVIAL IH PRN (19:41)
[2018-06-05] MEDS ORDERED: ONDANSETRON 4 MG/2 ML VIAL IVP PRN (19:41)
[2018-06-05] MEDS ORDERED: hydrALAZINE 20 MG/ML VIAL IVP PRN (19:44)
[2018-06-05] MEDS ORDERED: IPRATROPIUM/ALBUTEROL 3 ML DEYVIAL ONE (20:40)
[2018-06-05] MEDS: IPRATROPIUM/ALBUTEROL 3 ML DEYVIAL IH SCH (20:53)
--- NOTE | 2018-06-05 21:43 | PDGENHP ---
History and Physical - Chief Complaint sob/fever - History of Present Illness 88 yo F with PMH of CHF, CAD presenting with complaints of sob, fever and cough x 2 days. She notes her kids have been in town visiting and she stopped taking her lasix about 1 week ago as to not have to go to the bathroom too much. She did have multiple family members in the house who were sick with what seemed like colds and she notes many of them were coughing on her etc. She does notice that her legs are more swollen than usual and she has had increased and productive cough with yellow sputum production. She has not had any chest pain per her report. She denies any pain in her legs. She does feel more sob when lying down at night and more sob with exertion than normal. She states overall she is exhausted. History Information - Allergies/Home Medication List Allergies/Adverse Reactions: morphine Allergy (Verified 06/05/18 16:34) NAUSEA Penicillins Allergy (Verified 06/05/18 16:34) Rash Home Medications: Aspirin [Aspirin 325 mg (*)] 325 mg PO HS 02/13/14 [Last Taken 06/04/18] Carvedilol 12.5 mg PO BIDMEAL 06/24/16 [Last Taken 06/05/18 09:00] hydrALAZINE [Apresoline 10 mg (*)] 10 mg PO BIDMEAL 06/24/16 [Last Taken 09:00] Isosorbide Mononitrate [Imdur 30 mg (*)] 30 mg PO DAILY 07/16/17 [Last Taken ] Multivitamins [Multivitamin (*)] 1 tab PO DAILY 07/16/17 [Last Taken 06/05/18] Herbals/Supplements -Info Only 1 ea PO DAILY 06/05/18 [Last Taken 06/05/18] I have personally reviewed and updated: family history, medical history, social history, surgical history - Past Medical History coronary artery disease ( With CABG approximately 20 years ago and subsequent non ST elevation myocardial infarction in 2013, patient declined cardiac catheterization at that time elected for medical management), CHF ( diastolic, chronic), hypertension Additional medical history: chronic kidney disease stage 3 with baseline creatinine 1.2-1.3 ; pulmonary hypertension - Surgical History Reports: appendectomy, coronary bypass surgery ( approximately 20 years ago), cholecystectomy, hysterectomy Additional surgical history: right total hip replacement - Family History Positive for: non-pertinent Additional family history: no coronary disease - Social History Smoking Status: Never smoked Alcohol Use: Sober Drug Use: None Additional social history: independent in her ADLs, daughter lives locally Review of Systems Review of Systems: ROS: 10pt was reviewed & negative except for what was stated in HPI & below Physical Exam Physical Exam: Temp Pulse Resp BP Pulse Ox 37.4 C 56 L 20 101/45 L 95 06/05/18 19:12 06/05/18 21:18 06/05/18 21:18 06/05/18 21:18 06/05/18 21:18 O2 (L/minute) 2.5 Constitutional: no apparent distress, appears nourished, chronically ill appearing Eyes: PERRL, anicteric sclera Ears, Nose, Mouth, Throat: moist mucous membranes, hearing normal Cardiovascular: regular rate and rhythym, no murmur, rub, or gallop, edema (2+ bilateral lower extremity edema) Respiratory: reduced air movement, inspiratory crackles, respiratory distress Gastrointestinal: normoactive bowel sounds, soft, non-tender abdomen Genitourinary: no bladder tenderness Skin: warm, normal color Musculoskeletal: no muscle tenderness Neurologic: AAOx3 Psychiatric: interacting appropriately, not anxious, not encephalopathic Lab Data & Imaging Review 06/05/18 18:15 06/05/18 18:15 WBC 10.21 10^3/uL (3.80-9.50) H 06/05/18 18:15 RBC 4.02 10^6/uL (4.18-5.33) L 06/05/18 18:15 Hgb 12.1 g/dL (12.6-16.3) L 06/05/18 18:15 Hct 37.2 % (38.0-47.0) L 06/05/18 18:15 MCV 92.5 fL (81.5-99.8) 06/05/18 18:15 MCH 30.1 pg (27.9-34.1) 06/05/18 18:15 MCHC 32.5 g/dL (32.4-36.7) 06/05/18 18:15 RDW 13.2 % (11.5-15.2) 06/05/18 18:15 Plt Count 192 10^3/uL (150-400) 06/05/18 18:15 MPV 11.0 fL (8.7-11.7) 06/05/18 18:15 Neut % (Auto) 87.2 % (39.3-74.2) H 06/05/18 18:15 Lymph % (Auto) 4.4 % (15.0-45.0) L 06/05/18 18:15 [place] % (Auto) 6.5 % (4.5-13.0) 06/05/18 18:15 Eos % (Auto) 1.0 % (0.6-7.6) 06/05/18 18:15 Baso % (Auto) 0.6 % (0.3-1.7) 06/05/18 18:15 Nucleat RBC Rel Count 0.0 % (0.0-0.2) 06/05/18 18:15 Absolute Neuts (auto) 8.90 10^3/uL (1.70-6.50) H 06/05/18 18:15 Absolute Lymphs (auto) 0.45 10^3/uL (1.00-3.00) L 06/05/18 18:15 Absolute Monos (auto) 0.66 10^3/uL (0.30-0.80) 06/05/18 18:15 Absolute Eos (auto) 0.10 10^3/uL (0.03-0.40) 06/05/18 18:15 Absolute Basos (auto) 0.06 10^3/uL (0.02-0.10) 06/05/18 18:15 Absolute Nucleated RBC 0.00 10^3/uL (0-0.01) 06/05/18 18:15 Immature Gran % 0.3 % (0.0-1.1) 06/05/18 18:15 Immature Gran # 0.03 10^3/uL (0.00-0.10) 06/05/18 18:15 RBC/WBC/PLT Morphology TNP 06/05/18 18:15 Platelet Estimate TNP 06/05/18 18:15 PT 14.3 SEC (12.0-15.0) 06/05/18 18:15 INR 1.09 (0.83-1.16) 06/05/18 18:15 APTT 27.3 SEC (23.0-38.0) 06/05/18 18:15 VBG Lactic Acid 0.9 mmol/L (0.7-2.1) 06/05/18 18:15 Sodium 137 mEq/L (135-145) 06/05/18 18:15 Potassium 4.6 mEq/L (3.3-5.0) 06/05/18 18:15 Chloride 103 mEq/L (97-110) 06/05/18 18:15 Carbon Dioxide 25 mEq/l (22-31) 06/05/18 18:15 Anion Gap 9 mEq/L (6-14) 06/05/18 18:15 BUN 25 mg/dL (7-23) H 06/05/18 18:15 Creatinine 1.1 mg/dL (0.6-1.0) H 06/05/18 18:15 Estimated GFR 47 06/05/18 18:15 Glucose 116 mg/dL (70-100) H 06/05/18 18:15 Calcium 9.5 mg/dL (8.5-10.4) 06/05/18 18:15 Total Bilirubin 0.8 mg/dL (0.1-1.4) 06/05/18 18:15 POC Troponin I 0.19 ng/mL (0.00-0.08) H 06/05/18 18:28 NT-Pro-B Natriuret Pep 54093 pg/mL (0-450) H 06/05/18 18:15 Nasal Influenza A PCR NEGATIVE FOR FLU A (NEGATIVE) 06/05/18 16:40 Nasal Influenza B PCR NEGATIVE FOR FLU B (NEGATIVE) 06/05/18 16:40 Visualized and Interpreted Chest x-ray results: Yes Chest X-Ray results: other (pulmonary vascular congestion c/w chf) Visualized and Interpreted EKG results: Yes EKG Interpretation: Positive for: normal sinsus rhythm EKG additional interpertation: multiple vpcs Assessment & Plan Assessment: Congestive heart failure (Acute) Acute bronchitis (Acute) 88 yo F with PMH of CHF, CAD presenting with chf exacerbation and rhinovirus # acute on chronic chf exacerbation: BNP of 13,000 evidence of pulmonary and increased lower extremity edema in the setting of rhinovirus and being off of lasix x 1 week. Given IV lasix in ER which we will continue, cardiology consult requested for the am. Last echo in 2013 so will repeat in morning. Will monitor on tele and obtain serial trops # elevated troponin: in the setting of above and possibly related to same, will trend overnight, patient denies chest pain and ecg not clearly ischemic though abnormal, echo in am # acute hypoxic respiratory failure: in setting of acute chf and viral infection as next, supplemental o2 of 2L required to maintain o2 sats > 90%, supportive care, lasix # acute rhinovirus infection: without e/o pna on cxr, supportive care # CAD: as above with elevated trop and concern for ACS versus strain, trending trops, cards consulted # ckd: with baseline creatine around 1.1, currently at baseline # htn: uncontrolled, will resume home bp meds with addition of hydralazine prn # IP status, will require > 48 hours stay for eval/mgmt of above Patient new to my care. Old records reviewed and summarized as above. Care plan reviewed with ER doctor as above.
[2018-06-06] MEDS: MELATONIN 3 MG TAB PO PRN ×2 (02:29→20:23)
[2018-06-06] MEDS: IPRATROPIUM/ALBUTEROL 3 ML DEYVIAL IH SCH ×4 (06:08→21:02)
[2018-06-06 06:40] LABS: PLATELET COUNT 179 10^3/uL (150-400)
[2018-06-06] MEDS ORDERED: HEPARIN 10,000 UNIT/10 ML MDV (1,000 UNIT/ML) IVP PRN (08:38)
[2018-06-06] MEDS ORDERED: HEPARIN/DEXTROSE 500 ML IV SCH (08:45)
--- NOTE | 2018-06-06 08:54 | HOSPPROG ---
Hospitalist Progress Note Assessment/Plan: 88 yo F with h/o CHF, CAD presenting with HF exac, viral URI and positive troponin this morning # ACS - troponin up to 3.7 this am in setting of abnormal EKG, RBBB not new, but ST segment changes noted. Pt c/o chest pressure, unclear if related to URI. Goals of care are to avoid aggressive interventions, says she doesn't think she'll survive a cath. Daughter who is MDPOA also does not want interventions. -plan for medical management, discussed with cards: ASA, BB, statin, heparin drip, nitrates -echo pending # acute on chronic HF exacerbation: in setting of above, BNP of 13,000, LE edema and CXR c/w HF. -cont IV lasix, monitor I&O's, daily weights -echo pending # acute rhinovirus infection: without e/o pna on cxr -cont supportive care, trial nebs # ahrf: in setting of acute HF, viral URI and presumed ACS -management as above # ckd: with baseline creatine around 1.1 -currently near baseline # htn: improved control today -cont current meds # code status: dnr # dispo: inpt for ongoing management of ACS, viral URI and acute HF Patient new to my care. Old records reviewed and summarized as above. Discussed with cards. Subjective: Pt says she feels a little better today, but still quite weak. Coughing quite a bit, which causes chest pain. Also reports some SOB. No fevers/chills. appetite ok. Objective: Vital Signs Temp Pulse Resp BP Pulse Ox 37.7 C 74 20 137/51 H 97 06/06/18 07:41 06/06/18 07:41 06/06/18 07:41 06/06/18 07:41 06/06/18 07:41 Laboratory Results 06/06/18 06:15 06/06/18 06:15 PT 14.3 SEC (12.0-15.0) 06/05/18 18:15 INR 1.09 (0.83-1.16) 06/05/18 18:15 - Physical Exam Constitutional: no apparent distress Eyes: PERRL Ears, Nose, Mouth, Throat: moist mucous membranes Cardiovascular: regular rate and rhythym Respiratory: no respiratory distress, clear to auscultation Gastrointestinal: normoactive bowel sounds, soft, non-tender abdomen Skin: warm Musculoskeletal: full muscle strength Neurologic: AAOx3 Psychiatric: interacting appropriately ICD10 Worksheet Patient Problems: Problems Problem Status Onset Acute bronchitis Acute Congestive heart failure Acute Bilateral arm pain Acute Hypertension Acute Shortness of breath Acute Troponin level elevated Acute
[2018-06-06] MEDS ORDERED: BENZONATATE 100 MG CAP PO PRN (08:55)
--- NOTE | 2018-06-06 08:55 | PDMN ---
Medical Necessity Medical necessity: Pt meets inpt criteria per MD order and MCG M-190, Heart Failure. 88 y/o presented w/shortness of breath, fever, and cough, admitted w/ acute hypoxic resp failure in setting of acute on chronic CHF exacerbation ( confirmed on CXR) and rhinovirous. BNP 13,000, elevated troponins (trending up) w/concern for ACS vs strain, cardiology consult and ECHO pending. BUN and creatinine elevated at 30, 1.2. IV Lasix, suppl O2, anticipate>2MN for med nec ongoing eval/treatment for above.
[2018-06-06] MEDS ORDERED: ENOXAPARIN 30 MG/0.3 ML SYR SC SCH (09:00)
[2018-06-06 09:55] LABS: INR 1.15 (0.83-1.16); PROTIME(PATIENT) 14.9 SEC (12.0-15.0)
[2018-06-06 10:00] LABS: PLATELET COUNT 178 10^3/uL (150-400)
[2018-06-06] MEDS: MULTIVITAMINS 1 EACH TAB PO SCH (10:13)
[2018-06-06] MEDS: CARVEDILOL 25 MG TAB PO SCH ×2 (10:13→18:12)
[2018-06-06] MEDS: ISOSORBIDE MONONITRATE 30 MG TAB.SR PO SCH (10:13)
[2018-06-06] MEDS: ATORVASTATIN CALCIUM 40 MG TAB PO SCH (10:14)
[2018-06-06] MEDS: hydrALAZINE 10 MG TAB PO SCH ×2 (10:14→18:12)
[2018-06-06] MEDS: FUROSEMIDE 20 MG/2 ML VIAL IVP SCH ×2 (10:14→15:41)
--- NOTE | 2018-06-06 10:21 | ECHO ---
[email or web address] [address] [address] Main: [phone] Fax: Transthoracic Echocardiogram Name: MELANIE ERNANDEZ MR#: [id number] Study Date: 06/06/2018 Study Time: 07:47 AM Date of : 1930 Age: 88 year(s) Height: 162.6 cm (64 in.) Weight: 66.23 kg (146 lb.) BSA: 1.71 m2 Gender: Female Examination: Echo Indication: acute CHF, elevated troponin Image Quality: Adequate Contrast: Requested by: Isabel Roman BP: 137 mmHg/51 mmHg Heart Rate: Rhythm: Indication: acute CHF, elevated troponin Procedure Staff Diplomatic Officer: Cayla Lei [facility] Reading Physician: Anthony Dick MD Requesting Provider: Conclusions: Moderate concentric LV hypertrophy. Low normal left ventricular systolic function. EF is 50 %. Moderate mitral annular calcification. Moderate mitral valve regurgitation is present. Mild mitral valve stenosis is present. Moderate aortic valve regurgitation is present. Severe calcific aortic valve stenosis. Max velocity across the aortic valve 3.6 m/s, 34/52mmHg mean/max pressure gradient, NDSI = .23 and estimated JENNIFER = .7cm2. Moderate tricuspid regurgitation is present. Right ventricular systolic pressure measures 57mmHg. Measurements: Chambers Valvular Assessment AV/MV Valvular Assessment TV/PV Normal Normal Normal Name Value Range Name Value Range Name Value Range Ao Negar (MM): 3.2 cm (2.2 cm-3.7 AV Vmax: 3.62 m/s (1 m/s-1.7 TR Vmax: 3.24 mm/s ( - ) cm) m/s) TR PGmax: 42 mmHg ( - ) IVSd (2D): 1.2 cm (0.6 cm-1.1 AV maxP mmHg ( - ) syst. PAP: 57 mmHg ( - ) cm) AV meanP mmHg ( - ) PV Vmax: 1.04 m/s (0.6 m/s-0.9 LVDd (2D): 4.2 cm (3.9 cm-5.3 JENNIFER (VTI): 0.7 cm ( - ) m/s) cm) AR (PHT): 327 ms ( - ) PV PGmax: 4 mmHg ( - ) LVDs (2D): 2.9 cm (2.1 cm-4 MV E Vmax: 1.76 m/s ( - ) cm) MV A Vmax: 1.67 m/s ( - ) LVPWd (2D): 1.3 cm ( - ) MV E/A: 1.05 ( - ) LVOTd 1.9 cm 1.9 cm mm MV meanP mmHg ( - ) LVEF (BP): 50 % (>=55 %) MV PHT: 0.056 s ( - ) RVDd(2D): 3.8 cm (1.9 cm-3.8 cmmm) MVA (Vmax): 1.1 m/s ( - ) MVA (PHT): 3.9 s ( - ) Patient: MELANIE ERNANDEZ Study Date: 06/06/2018 Page 1 of 2 07:47 AM Continued Measurements: Chambers Valvular Assessment AV/MV Valvular Assessment TV/PV Name Value Name Value Name Value LADs: 4.3 cm MV Annulus: 3.2 cm CVP (est.): 15 mmHg LADs Lon.0 cm MV DecTime: 211 m/s LA Area: 23.2 cm2 MV E' Septal: 0.04 m/s LA Volume: 76 ml MV E/E' Septal: 45.40 LA Volume Index: 44.4 ml/m2 MV E/E' Lateral: 44.70 TAPSE: 1.8 cm MV VTI: 60.00 cm RA Area: 21.4 cm2 MR Vena Contracta: 0.7 cm MR ERO: 0.120 cm2 MR PISA radius: 6 mm MR Reg. Volume: 24 ml MR Reg. Fraction: 5 % AR Vmax: 3.76 cm/s Additional Vessels Name Value Ao Ascendin.4 cm Findings: Left Ventricle: Normal size left ventricle. Moderate concentric LV hypertrophy. Low normal left ventricular systolic function. EF is 50 %. Grade 2 diastolic dysfunction (pseudonormalized LV filling pattern). Subtle inferior basal hypokinesis. Right Ventricle: Normal size right ventricle. Normal RV function. Left Atrium: The left atrium is moderately dilated. Right Atrium: The right atrium is moderately dilated. Mitral Valve: There is moderate thickening of the mitral valve leaflets. Moderate mitral annular calcification. The posterior mitral leaflet appears immobile. Moderate mitral valve regurgitation is present. Mild mitral valve stenosis is present. Aortic Valve: The aortic valve is tri-leaflet. Moderate aortic cusp calcification is present. Moderate aortic valve regurgitation is present. Severe calcific aortic valve stenosis. Max velocity across the aortic valve 3.6 m/s, 34/52mmHg mean/max pressure gradient, NDSI = .23 and estimated JENNIFER = .7cm2. Tricuspid Valve: The tricuspid valve appears normal. Moderate tricuspid regurgitation is present. Right ventricular systolic pressure measures 57mmHg. The pulmonary artery pressure is moderately increased. Pulmonic Valve: Pulmonary valve not well visualized. Mild pulmonic valve regurgitation is noted. Aorta: Normal size aortic root measuring 3.2 cm. Normal size ascending aorta measuring 3.4 cm. IVC: The IVC is dilated. There is less than 50% respiratory excursion. Pericardium: No pericardial effusion. (No Signature Object) Patient: MELANIE ERNANDEZ Study Date: 06/06/2018 Page 2 of 2 07:47 AM [id number]
--- NOTE | 2018-06-06 10:53 | PDCARPN ---
Cardiology Progress Note Chief Complaint: Shortness of breath with reports of fevers Assessment/Plan: Assessment: Patient is an 88 y/o female with history of CAD s/p CABG (4V with only SAMANO to LAD being patent), HTN, HLP, CRI (with one functioning kidney), DM, chronic diastolic CHF, valvular heart disease ( with mean gradient of 23, mod MR, and mod TR), who presented to [facility] with dyspnea and fevers. Patient with recent birthday libertarian (her 88) with "sick" family members in town. Furthermore, the patient stopped her diuretic therapy given desire to not have interruptions to go to the bathroom with pending travel (to store) as well as the inconvenience given the libertarian and family. Review of outpatient medications (from [facility] note in December 2017), there were no diuretics in place. Uncertain what diuretic was not being taken (daughter, present in the room said that she stopped HCTZ, which was every 2-3 days for over a week, but the ER attending wrote that the patient had not been taking her Lasix therapy). There is a feeling that the patient's weights are up, but the outpatient office note did not have a weight. Daughter, present in the room today reports that (a) the patient is looking much better than yesterday and (b) her legs are less swollen. Cardiology has no frame of reference for these comments today. She does have complaints of fatigue and exhaustion. Plan: (1) Would maintain patient on Coreg as at present (2) Imdur should continue given history of "very small vessels" with angiography in the past (3) ASA therapy would be good to continue given history of CAD with CABG (4) Heparin therapy (sans bolus) while in patient (5) Statins should continue for HLP in setting of CAD with CABG (6) At this point in time, the plan is for aggressive medical management rather than invasive left heart catheterization - this is a request of both the patient and the daughter (7) Would continue IV lasix today (20 mg) and closely monitor weights, signs, and symptoms. Subjective: Patient is feeling better today. No cardiovascular complaints. She is sitting up in a chair Reviewed/Discussed With: family, hospitalist, multidisciplinary team Objective: Vital Signs (8 Hrs) Temp Pulse Resp BP Pulse Ox 06/06/18 07:41 37.7 C 74 20 137/51 H 97 06/06/18 06:18 37.4 C 126/86 H 06/06/18 06:00 73 20 93 06/06/18 05:17 79 16 130/63 H 92 06/06/18 04:53 71 20 97 06/06/18 03:46 73 18 99 Intake/Output (24 Hrs) 06/05/18 06/06/18 06/07/18 05:59 05:59 05:59 Other: Weight 66.224 kg Result Diagrams: 06/06/18 09:35 06/06/18 06:15 Cardiac Labs: Cardiac Lab Results (72 Hrs) 06/06/18 06:15 Troponin I 3.700 H EKG: RBBB with first degree AVB and T wave inversions to the anterolateral leads Echocardiogram: low normal LVEF (50%) with mod LVH, mod AI, severe with mean gradient of 34 mm Hg, 3.6 m/s, and JENNIFER of 0.7 cm^2, mod MR, mod TR with RVSP of 57 mm Hg. - Physical Exam Constitutional: WDWN, no apparent distress, obese Eyes: PERRL, EOMI Ears, Nose, Mouth, Throat: moist mucous membranes Cardiovascular: regular rate and rhythm, systolic murmur, diastolic murmur, jugular vein distention, pulses symmetric bilat Peripheral Pulses: 2+: dorsalis-pedis (R), dorsalis-pedis (L) Respiratory: no wheezes, reduced air movement (to the bases) Gastrointestinal: normoactive bowel sounds Skin: other (edema to BLE with L>R) Musculoskeletal: no muscular tenderness Neurologic: AAOx3, CN II-XII grossly intact Psychiatric: cooperative, interactive, following commands (patient was hard of hearing) ICD10 Worksheet Patient Problems: Problems Problem Status Onset Acute bronchitis Acute Congestive heart failure Acute Bilateral arm pain Acute Hypertension Acute Shortness of breath Acute Troponin level elevated Acute
--- NOTE | 2018-06-06 11:47 | ASMTCMCOM ---
CM Note CM Note Notes: Pts case discussed in tx rounds. Pt is a 88 y/o female admitted for shortness of breath and a fever. Therapies have been ordered and awaiting recommendations. Needs are TBD at this time. CM to follow. Plan: TBD Date Signed: 06/06/2018 11:46 AM Electronically Signed By:JHOANA Hargrove
[2018-06-06] MEDS: ASPIRIN 325 MG TAB PO SCH (20:23)
[2018-06-07] MEDS: IPRATROPIUM/ALBUTEROL 3 ML DEYVIAL IH SCH ×4 (06:16→21:24)
[2018-06-07] MEDS: ATORVASTATIN CALCIUM 40 MG TAB PO SCH (08:25)
[2018-06-07] MEDS: MULTIVITAMINS 1 EACH TAB PO SCH (08:26)
[2018-06-07] MEDS: ISOSORBIDE MONONITRATE 30 MG TAB.SR PO SCH (08:26)
[2018-06-07] MEDS: CARVEDILOL 25 MG TAB PO SCH ×2 (08:27→17:40)
[2018-06-07] MEDS: hydrALAZINE 10 MG TAB PO SCH (10:16)
--- NOTE | 2018-06-07 10:23 | HOSPPROG ---
Hospitalist Progress Note Assessment/Plan: 88 yo F with h/o CHF, CAD presenting with HF exac, viral URI and ACS # ACS - troponin peaked at 4.5, now trending down. Per her goals of care, no interventions. -cont medical management with ASA, BB, statin, nitrates -d/c heparin and start plavix, discussed with cards # acute on chronic HF exacerbation: in setting of above, BNP 13K --> 23K. Suspect critical contributing -hold lasix today with rising Cr and hypotension. possibly resume po lasix tomorrow -monitor I&O's, daily weights # critical : discussed with cards. she has apparently declined interventions for this in the past and is now likely nearing the end of life -discussed with daughter who agrees to hospice eval, SW notified and order placed # hypotension: in setting of diuresis and critical -reduce coreg to 12.5 mg bid with hold parameters -hold lasix as above # diarrhea: check c diff, if neg, ok to give imodium # acute rhinovirus infection: without e/o pna on cxr -cont supportive care, anti-tussives, mucinex, nebs # ahrf: in setting of acute HF, viral URI and presumed ACS -management as above # ckd: with baseline creatine around 1.1, Cr up to 1.6 today with diuresis and likely poor forward flow with critical and ACS -hold diuretic today # htn: hypotensive as above -decrease coreg, hold hydralazine # code status: dnr # dispo: inpt for ongoing management of ACS, viral URI and acute HF. Hospice eval planned for critical / end stage with heart failure Subjective: Pt feels ok, coughing a little less. A little SOB. Denies CP. No fevers/chills. Taking some po. Objective: Vital Signs Temp Pulse Resp BP Pulse Ox 36.4 C 52 L 14 117/53 L 98 06/07/18 08:21 06/07/18 10:02 06/07/18 09:34 06/07/18 10:02 06/07/18 09:34 Laboratory Results 06/06/18 09:35 06/07/18 03:14 06/06/18 06/07/18 06/08/18 05:59 05:59 05:59 Intake Total 490 250 Output Total 775 125 Balance -285 125 PT 14.9 SEC (12.0-15.0) 06/06/18 09:35 INR 1.15 (0.83-1.16) 06/06/18 09:35 - Physical Exam Constitutional: no apparent distress Eyes: PERRL Ears, Nose, Mouth, Throat: moist mucous membranes Cardiovascular: regular rate and rhythym, systolic murmur Respiratory: no respiratory distress, inspiratory crackles Gastrointestinal: normoactive bowel sounds, soft, non-tender abdomen Skin: warm Musculoskeletal: full muscle strength Neurologic: AAOx3 Psychiatric: interacting appropriately ICD10 Worksheet Patient Problems: Problems Problem Status Onset Acute bronchitis Acute Congestive heart failure Acute Bilateral arm pain Acute Hypertension Acute Shortness of breath Acute Troponin level elevated Acute
[2018-06-07] MEDS ORDERED: PROTOCOL MAGNESIUM 1 DOSE IV PRN (11:48)
[2018-06-07] MEDS ORDERED: PROTOCOL POTASSIUM 1 DOSE MISC PRN (11:48)
--- NOTE | 2018-06-07 11:54 | ASMTCMCOM ---
CM Note CM Note Notes: Pts case discussed in tx rounds. CM met w/ pt and pts daughter for dispo planning. Therapies are recommending SNF. Pt is not interested in SNF at this time. Daughter reports that she will be able to talk pt into SNF. A referral requested to be made to [facility]. Referral sent. Non triggering pasrr completed. Daughter is requesting for a private room. Daughter reports that she called pts insurance today and was informed that her insurance would cover multiple hours per week of skilled care. Daughter was thinking that pt could go home w/ HC if she improved and if she could get multiple hours of help. Daughter was given a list of skilled HC by the insurance that could provide the multiple hours of service. CM to follow. Plan: SNF vs HC Date Signed: 06/07/2018 11:53 AM Electronically Signed By:JHOANA Hargrove
[2018-06-07] MEDS: CLOPIDOGREL BISULFATE 75 MG TAB PO SCH (13:11)
[2018-06-07] MEDS: guaiFENesin 600 MG TAB.ER PO SCH ×2 (14:11→20:38)
--- NOTE | 2018-06-07 14:42 | ASMTCMCOM ---
CM Note CM Note Notes: CM spoke to Dr. Blas regarding d/c POC. Dr. Blas and pts daughter discussed hospice. Dr. Blas is thinking that pt may qualify under critcal/end stage aortic stenosis. CM spoke to pts daughter about hospice. Daughter still wants pt to go to SNF and pursue care. [facility] able to accept and provide private room. Daughter ok w/ referral sent to a hospice agency. Referral send to [facility] [facility] will contact pts daughter directly. CM to follow. Plan: [facility] Date Signed: 06/07/2018 02:41 PM Electronically Signed By:JHOANA Hargrove
--- NOTE | 2018-06-07 15:30 | PDCARPN ---
Cardiology Progress Note Chief Complaint: Patient doing well today. She was sitting up in her chair this morning during rounds. Assessment/Plan: Assessment: 06-07-18 Patient without cardiovascular complaints this morning. Uneventful night. No complaints of chest pains or pressure. Heparin had been started at the time of admission given the mild troponin leak. Patient and family without desire to have invasive work (angiography or discussion about the aortic valve pathology) , and cardiology is in agreement with their decisions. Troponin peak to 4.5 yesterday with drop to 3.8 today. BNP elevation continues to be noted. No complaints of dyspnea. Renal insufficiency appreciated today with elevation to both BUN and Creatinine. 06-06-18 Patient is an 88 y/o female with history of CAD s/p CABG (4V with only SAMANO to LAD being patent), HTN, HLP, CRI (with one functioning kidney), DM, chronic diastolic CHF, valvular heart disease ( with mean gradient of 23, mod MR, and mod TR), who presented to [facility] with dyspnea and fevers. Patient with recent birthday democrat (her ) with "sick" family members in town. Furthermore, the patient stopped her diuretic therapy given desire to not have interruptions to go to the bathroom with pending travel (to store) as well as the inconvenience given the democrat and family. Review of outpatient medications (from [facility] note in December 2017), there were no diuretics in place. Uncertain what diuretic was not being taken (daughter, present in the room said that she stopped HCTZ, which was every 2-3 days for over a week, but the ER attending wrote that the patient had not been taking her Lasix therapy). There is a feeling that the patient's weights are up, but the outpatient office note did not have a weight. Daughter, present in the room today reports that (a) the patient is looking much better than yesterday and (b) her legs are less swollen. Cardiology has no frame of reference for these comments today. She does have complaints of fatigue and exhaustion. Plan: (1) Discontinue heparin therapy and begin therapy on Plavix (2) Imdur to continue for history of "small vessel" CAD (3) Life long therapy on ASA given CAD and CABG (4) Statins to continue for HLP, and maintain annual assessment of cholesterol and LFTs (5) Would consider Hospice consultation given the severe noted and the troponin leak noted - the patient is not wanting to have any invasive therapies, and further hospitalizations may lead to the patient having work that she is not interested in having (6) Would being therapy on PO lasix Objective: Vital Signs (8 Hrs) Temp Pulse Resp BP Pulse Ox 06/07/18 10:02 52 L 117/53 L 06/07/18 09:55 58 L 97/37 L 06/07/18 09:34 61 14 98 06/07/18 08:21 36.4 C 61 12 147/87 H 99 Intake/Output (24 Hrs) 06/06/18 06/07/18 06/08/18 05:59 05:59 05:59 Intake Total 490 367 Output Total 775 125 Balance -285 242 Intake: Oral (ml) 300 250 IV Infused (ml) 190 117 Heparin/Dextrose 500 ml @ 190 117 Per Protocol IV CONT JOHANN Rx#:[id number] Output: Urine (ml) 775 125 Toilet 775 125 Other: Weight 66.224 kg 64.3 kg Number of Voids Toilet 1 Number of Stools Toilet 1 1 Result Diagrams: 06/06/18 09:35 06/07/18 03:14 Cardiac Labs: Cardiac Lab Results (72 Hrs) 06/07/18 06/06/18 06/06/18 03:14 13:50 06:15 Troponin I 3.810 H 4.500 H 3.700 H Telemetry: Normal sinus rhythm at 80 bpm - Physical Exam Constitutional: WDWN, no apparent distress Eyes: PERRL, EOMI Ears, Nose, Mouth, Throat: moist mucous membranes Cardiovascular: regular rate and rhythm, systolic murmur, pulses symmetric bilat , No jugular vein distention Peripheral Pulses: 2+: dorsalis-pedis (R), dorsalis-pedis (L) Respiratory: no crackles, no wheezes, reduced air movement Gastrointestinal: normoactive bowel sounds Skin: no edema Musculoskeletal: no muscular tenderness Neurologic: AAOx3, CN II-XII grossly intact Psychiatric: cooperative, interactive, following commands ICD10 Worksheet Patient Problems: Problems Problem Status Onset Acute bronchitis Acute Congestive heart failure Acute Bilateral arm pain Acute Hypertension Acute Shortness of breath Acute Troponin level elevated Acute
--- NOTE | 2018-06-07 17:08 | ASMTCMCOM ---
CM Note CM Note Notes: Trinity from [facility] will be coming in tomorrow for 10AM to meet w/ daughter and pt for an informational hospice meeting. Date Signed: 06/07/2018 05:07 PM Electronically Signed By:JHOANA Hargrove
[2018-06-07] MEDS: ASPIRIN 325 MG TAB PO SCH (20:38)
[2018-06-08] MEDS: MELATONIN 3 MG TAB PO PRN ×2 (01:15→20:53)
[2018-06-08] MEDS: IPRATROPIUM/ALBUTEROL 3 ML DEYVIAL IH SCH ×4 (06:08→21:14)
[2018-06-08] MEDS: ISOSORBIDE MONONITRATE 30 MG TAB.SR PO SCH (09:02)
[2018-06-08] MEDS: ATORVASTATIN CALCIUM 40 MG TAB PO SCH (09:02)
[2018-06-08] MEDS: CLOPIDOGREL BISULFATE 75 MG TAB PO SCH (09:02)
[2018-06-08] MEDS: CARVEDILOL 25 MG TAB PO SCH ×2 (09:02→17:15)
[2018-06-08] MEDS: MULTIVITAMINS 1 EACH TAB PO SCH (09:02)
[2018-06-08] MEDS: guaiFENesin 600 MG TAB.ER PO SCH ×2 (09:03→23:13)
[2018-06-08] MEDS: VANCOMYCIN 125 MG/2.5 ML UDL PO SCH ×3 (14:39→20:54)
--- NOTE | 2018-06-08 16:17 | ASMTCMCOM ---
CM Note CM Note Notes: Physician spoke with pt's daughter who had been wanting pt to go to SNF and after conversation with hospitalist, dtr decided pt could go home with hospice. Pt and daughter met with technical service representative of [facility] for informational meeting and daughter has decided to go with [facility]. Information faxed to [facility] (not on [employer]) and they are in the process of obtaining authorization. Kristin from [facility] confirmed that they are able to provide nebulizers for bronchitis which was a concern of the daughter, and dtr would like that set up on the day of discharge so there is not a hiatus in treatment. Pt may also need flu shot before discharge. CM to follow. Date Signed: 06/08/2018 04:16 PM Electronically Signed By:Kim Mistry
--- NOTE | 2018-06-08 18:58 | HOSPPROG ---
Hospitalist Progress Note Assessment/Plan: 88 yo F with h/o CHF, CAD presenting with HF exac, viral URI and ACS # ACS - troponin peaked at 4.5, now trending down. Per her goals of care, no interventions. -cont medical management with ASA, BB, statin, nitrates -heparin d/c'd, plavix added # acute on chronic HF exacerbation: in setting of above, BNP 13K --> 23K. Suspect critical contributing -hold lasix another day with elevated Cr, likely resume po dose tomorrow -monitor I&O's, daily weights # critical : discussed with cards. she has apparently declined interventions for this in the past and is now likely nearing the end of life -discussed with daughter who agrees to hospice YANICK cleaning notified and order placed -planning home with hospice, likely tomorrow # hypotension: in setting of diarrhea, diuresis and critical , improved today -reduced coreg to 12.5 mg bid with hold parameters # c diff: start po vanc # acute rhinovirus infection: without e/o pna on cxr -cont supportive care, anti-tussives, mucinex, nebs # ahrf: in setting of acute HF, viral URI and presumed ACS -management as above # ckd: with baseline creatine around 1.1, Cr still elevated to 1.5 today with diuresis and likely poor forward flow with critical and ACS -hold diuretic today # htn: with recent hypotension, cont decreased coreg, hydralazine still held # code status: dnr # dispo: inpt for ongoing management of ACS, viral URI, c diff and acute HF. Likely home with hospice tomorrow. Subjective: Pt not feeling well today, continues to have diarrhea and feels weak. No CP or SOB. Coughing less. No fevers. Objective: Vital Signs Temp Pulse Resp BP Pulse Ox 35.6 C L 68 16 158/84 H 96 06/08/18 15:48 06/08/18 16:50 06/08/18 16:50 06/08/18 15:48 06/08/18 16:50 Laboratory Results 06/08/18 03:26 06/08/18 03:26 06/07/18 06/08/18 06/09/18 05:59 05:59 04:59 Intake Total 490 1267 1100 Output Total 775 1225 500 Balance -285 42 600 PT 14.9 SEC (12.0-15.0) 06/06/18 09:35 INR 1.15 (0.83-1.16) 06/06/18 09:35 - Physical Exam Constitutional: no apparent distress Eyes: PERRL Ears, Nose, Mouth, Throat: moist mucous membranes Cardiovascular: regular rate and rhythym Respiratory: no respiratory distress, reduced air movement, inspiratory crackles Gastrointestinal: normoactive bowel sounds, soft, non-tender abdomen Skin: warm Musculoskeletal: generalized weakness Neurologic: AAOx3 Psychiatric: interacting appropriately ICD10 Worksheet Patient Problems: Problems Problem Status Onset Acute bronchitis Acute Congestive heart failure Acute Bilateral arm pain Acute Hypertension Acute Shortness of breath Acute Troponin level elevated Acute
[2018-06-08] MEDS: ASPIRIN 325 MG TAB PO SCH (20:53)
[2018-06-08] MEDS: guaiFENesin/CODEINE PHOS 10 ML UDCUP PO PRN (20:58)
[2018-06-09] MEDS: IPRATROPIUM/ALBUTEROL 3 ML DEYVIAL IH SCH ×4 (05:52→21:37)
[2018-06-09] MEDS ORDERED: MAGNESIUM SULF 1 GM/DEXTROSE 100 ML IV ONE (06:52)
[2018-06-09] MEDS: VANCOMYCIN 125 MG/2.5 ML UDL PO SCH ×4 (07:36→22:16)
[2018-06-09] MEDS: MULTIVITAMINS 1 EACH TAB PO SCH (09:17)
[2018-06-09] MEDS: ISOSORBIDE MONONITRATE 30 MG TAB.SR PO SCH (09:17)
[2018-06-09] MEDS: ATORVASTATIN CALCIUM 40 MG TAB PO SCH (09:17)
[2018-06-09] MEDS: CARVEDILOL 25 MG TAB PO SCH ×2 (09:17→17:20)
[2018-06-09] MEDS: guaiFENesin 600 MG TAB.ER PO SCH ×2 (09:17→22:24)
[2018-06-09] MEDS: CLOPIDOGREL BISULFATE 75 MG TAB PO SCH (09:17)
[2018-06-09] MEDS ORDERED: FUROSEMIDE 20 MG TAB PO SCH (11:30)
--- NOTE | 2018-06-09 13:25 | ASMTCMCOM ---
CM Note CM Note Notes: Per RN daughter is very anxious and states she is still trying to get everything together to accommodate the patient's dc to home with hospice. The patient will dc tomorrow with [facility]. Plan: As above. Date Signed: 06/09/2018 01:24 PM Electronically Signed By:Giovanna Lemus RN
--- NOTE | 2018-06-09 17:08 | HOSPPROG ---
Hospitalist Progress Note Assessment/Plan: 88 yo F with h/o CHF, CAD, and critical presenting with HF exac, viral URI and ACS # ACS - troponin peaked at 4.5, now trending down. Per her goals of care, no interventions. -cont medical management with ASA, BB, statin, nitrates -heparin d/c'd, plavix added # acute on chronic HF exacerbation: in setting of above, BNP 13K --> 23K. Suspect critical contributing -resume home oral lasix dose tomorrow # critical : discussed with cards. she has apparently declined interventions for this in the past and is now likely nearing the end of life -planning home with hospice, dc tomorrow # hypotension: in setting of diarrhea, diuresis and critical , improved today -reduced coreg to 12.5 mg bid with hold parameters # c diff: cont po vanc # acute rhinovirus infection: without e/o pna on cxr -cont supportive care, anti-tussives, mucinex, nebs # ahrf: in setting of acute HF, viral URI and presumed ACS -management as above # ckd: with baseline creatine around 1.1, likely poor forward flow with critical and ACS # htn: with recent hypotension, cont decreased coreg, resume hydralazine # code status: dnr # dispo: inpt for ongoing management of ACS, viral URI, c diff and acute HF. Home with hospice tomorrow. Subjective: Pt feels a little better, still having some diarrhea and had a fever last night. No CP or SOB. Coughing a bit still. Appetite fair. Objective: Vital Signs Temp Pulse Resp BP Pulse Ox 36.7 C 76 20 130/41 H 94 06/09/18 16:50 06/09/18 16:50 06/09/18 16:50 06/09/18 16:50 06/09/18 16:50 Laboratory Results 06/08/18 03:26 06/09/18 03:35 06/08/18 06/09/18 06/10/18 06:59 05:59 05:59 Intake Total 320 Output Total 150 Balance 170 PT 14.9 SEC (12.0-15.0) 06/06/18 09:35 INR 1.15 (0.83-1.16) 06/06/18 09:35 - Physical Exam Constitutional: no apparent distress Eyes: PERRL Ears, Nose, Mouth, Throat: moist mucous membranes Cardiovascular: regular rate and rhythym, systolic murmur Respiratory: no respiratory distress, reduced air movement, expiratory wheeze, inspiratory crackles Skin: warm Musculoskeletal: generalized weakness Neurologic: AAOx3 Psychiatric: interacting appropriately ICD10 Worksheet Patient Problems: Problems Problem Status Onset Acute bronchitis Acute Congestive heart failure Acute Bilateral arm pain Acute Hypertension Acute Shortness of breath Acute Troponin level elevated Acute
[2018-06-09] MEDS: hydrALAZINE 10 MG TAB PO SCH (17:20)
--- NOTE | 2018-06-09 21:17 | GDS ---
DISCHARGE DIAGNOSES: 1. Acute coronary syndrome. 2. Acute on chronic heart failure exacerbation. 3. Critical aortic stenosis. 4. Upper respiratory infection secondary to rhinovirus. 5. Clostridium difficile infection. 6. Acute hypoxemic respiratory failure secondary to acute heart failure and viral upper respiratory infection. 7. Chronic kidney disease. 8. Hypertension. CONSULTANTS: Gilberto Marquez MD., Cardiology. HISTORY: For details, please see History and Physical dated June 05, 2018. In brief, the patient is an 88-year-old female with a history of coronary artery disease and chronic heart failure who pre sented to the emergency department with shortness of breath, fever, and cough. She was found to be i n acute heart failure with a respiratory viral panel positive for rhinovirus/enterovirus. In additio n, she had a positive troponin and an elevated BNP. She was admitted to the hospital for further man agement. HOSPITAL COURSE: The patient was admitted to the cardiac telemetry unit. She was treated with IV La six. Initially, she had a mildly positive troponin. Overnight this navdeep to a peak of 4.5. She was then started on a heparin drip as her goals of care were such that she did not wish to have any aggre ssive interventions. She received supportive care for her viral upper respiratory infection. This m ay have been the precipitating factor of her above issues. Her heparin was then transitioned to Plav ix. Her IV diuresis was held with a rising creatinine. At discharge she will resume her regular zachary e Lasix dosing. She, unfortunately, developed diarrhea and was C diff positive. Thus she will also be discharging on oral vancomycin. In addition, it is noted that she has critical aortic stenosis, w hich is contributory to her heart failure symptoms. This has been known by the cardiology service fo r some time. She has previously declined operative intervention. Echocardiogram during this hospita lization now shows evidence of a critical aortic stenosis with a valve area of 0.7 sq cm and a maximu m velocity across aortic valve of 3.6 m/s. Cardiology has been involved in the case and advises that this is likely end-stage valve disease. Therefore, we discussed options for hospice with the martir arellano and her family. Josselin wishes to not return to the hospital. Her daughter has been diligently at e bedside in conversations with goals of care. She wishes to discharge home on hospice for continued supportive care and maintain quality of life but not return to the hospital. DISPOSITION: Patient is discharged home on hospice in stable condition. DISCHARGE MEDICATIONS: Please see MOVL completed outpatient medication list. New medications on discharge include: 1. Albuterol nebulizers 3 mL inhaled q.2 hours p.r.n. 2. Tessalon Perles 100 mg p.o. t.i.d. #30, no refills. 3. Plavix 75 mg p.o. daily #30, no refills. 4. Mucinex 600 mg p.o. b.i.d. 5. Melatonin 3-6 mg p.o. q.h.s. p.r.n. 6. Vancomycin 125 mg p.o. q.i.d. #120 for 12 more days of treatment to complete a course of 14 days. She will continue all other outpatient medications as previously prescribed includin. Aspirin 325 mg p.o. q.h.s. 2. Carvedilol 12.5 mg p.o. b.i.d. 3. Hydralazine 10 mg p.o. b.i.d. 4. Nitroglycerin 0.4 mg sublingual q. 5 minutes p.r.n. 5. Imdur 30 mg p.o. daily. 6. Furosemide 20 mg p.o. q. 2 days. 7. Multivitamin. /[id number]/MODL
[2018-06-09] MEDS: MELATONIN 3 MG TAB PO PRN (22:16)
[2018-06-09] MEDS: ASPIRIN 325 MG TAB PO SCH (22:24)
[2018-06-10] MEDS: guaiFENesin/CODEINE PHOS 10 ML UDCUP PO PRN (02:02)
[2018-06-10] MEDS: IPRATROPIUM/ALBUTEROL 3 ML DEYVIAL IH SCH ×2 (04:04→09:59)
[2018-06-10] MEDS: VANCOMYCIN 125 MG/2.5 ML UDL PO SCH ×2 (06:15→12:26)
[2018-06-10 08:10] VITALS: BP 153/60
--- NOTE | 2018-06-10 09:32 | PDIAF ---
- Diagnosis Diagnosis: Acute diastolic heart failure Code Status: Do Not Resuscitate - Medication Management Discharge Medications: electronically signed and located in the Home Medication List. - Orders Isolation Type: CDIFF Isolation, Droplet Isolation Diet Recommendation: no restrictions on diet - Follow Up Care Current Providers and Referrals: NONE *PRIMARY CARE P,. [Unknown] - As per Instructions
--- NOTE | 2018-06-10 09:46 | GDS ---
BRIEF HPI: An 88-year-old female with diastolic heart failure, acute C diff infection, and critical aortic stenosis, who was admitted with acute heart failure and rhino/enterovirus. Please see dictated discharge summary for full hospital course. The patient stayed overnight in order to arrange home hospice. DISPOSITION: She is stable for discharge home with hospice. MEDICATIONS: See medication reconciliation. PHYSICAL EXAMINATION: VITAL SIGNS: Today, temperature 36.9, blood pressure 153 /60, heart rate in the 70s, respirations 22, 91% on room air. GENERAL: She is pale, in no acute distress. HEENT: PERRLA. Moist mucous membranes. CV: Regular rate and rhythm. LUNGS: Coarse rhonchi. No wheeze. ABDOMEN: Soft, nontender, nondistended. Positive bowel sounds. : No Martinez. MUSCULOSKELETAL: 5/5, upper and lower extremity strength. NEURO: 2 through 12 intact. PSYCH: Alert and oriented x3. Time spent on discharge: Greater than 30 minutes coordinating with Case Management, bedside examining patient. /[id number]/MODL MTDD
[2018-06-10] MEDS: CARVEDILOL 25 MG TAB PO SCH (10:59)
[2018-06-10] MEDS: ATORVASTATIN CALCIUM 40 MG TAB PO SCH (10:59)
[2018-06-10] MEDS: ISOSORBIDE MONONITRATE 30 MG TAB.SR PO SCH (11:00)
[2018-06-10] MEDS: hydrALAZINE 10 MG TAB PO SCH (11:00)
[2018-06-10] MEDS: CLOPIDOGREL BISULFATE 75 MG TAB PO SCH (11:00)
[2018-06-10] MEDS: MULTIVITAMINS 1 EACH TAB PO SCH (11:00)
[2018-06-10] MEDS: guaiFENesin 600 MG TAB.ER PO SCH (11:09)
--- NOTE | 2018-06-10 12:15 | ASMTLACE ---
LACE Length of stay for Answers: 4-6 days current admission Acuity / Level of Answers: Yes Care: Did the patient have an inpatient admission? Comorbidities - select Answers: Chronic pulmonary disease all that apply Congestive heart failure Coronary Artery Disease Mild liver or renal disease Previous myocardial infarction Other Notes: HTN # of Emergency department Answers: 1-2 visits in the last 6 months Score: 18 Date Signed: 06/10/2018 12:07 PM Electronically Signed By:Fela Black RN
--- NOTE | 2018-06-10 12:18 | ASMTDCNOTE ---
Case Management Discharge Discharge Order Complete? Answers: Yes Patient to Obtain Answers: Other Notes: [facility] hosp[facility] Medications Transportation Arranged Answers: Family/Friends Faxed Final Orders Answers: Yes Notes: [facility] Agency/Facility Transfer Answers: Yes Notes: [facility] hosp[facility] Report Printed & Faxed to Receiving Agency Family Notified Answers: Yes Notes: daughter to transport Discharge Comments Notes: 06/10/2018 Case Maagement Note Pt discharged home with [facility]. Notified JOSE Foster with [facility], of d/c orders. Faxed via [employer] as [facility] does not use allscripts. Notified Family. Daughter to transport home. Nancy RN to meet pt at home with daughter. No further case management d/c needs identified. Date Signed: 06/10/2018 12:10 PM Electronically Signed By:Fela Black RN
--- NOTE | 2018-06-10 12:19 | ASDISCHSUM ---
Discharge Information Plan Status:Hospice-Home Medically Cleared to Leave:06/09/2018 Discharge Date:06/09/2018 CM D/C Disposition:Hospice Home ADT D/C Disposition:Hospice Home Projected Discharge Date:06/08/2018 11:00 AM Transportation at D/C:Friend Discharge Delay Reason: Follow-Up Date:06/08/2018 11:00 AM Discharge Slot: Final Diagnosis: Placement Information Referral Type:*Jail/SNF Referral ID:[id number] Provider Name: Address 1: Phone Number: Address 2: Fax Number: City: Selection Factors: State: Referral Type:*Hospice Referral ID:[id number] Provider Name: Address 1: Phone Number: Address 2: Fax Number: City: Selection Factors: State: Patient Contact Information Contact Name:HANANE Relationship:Daughter Address:[address] Work Phone: [facility] Phone: [facility]/Zip Code:[place] [address] Email: Financial Information Financial Class:Medicare Advantage Plans Primary Plan Desc:[facility] Primary Plan Number:[id number] Secondary Plan Desc: Secondary Plan Number: Assessment Information LACE LACE Length of stay for Answers: 4-6 days current admission Acuity / Level of Answers: Yes Care: Did the patient have an inpatient admission? Comorbidities - select Answers: Chronic pulmonary disease all that apply Congestive heart failure Coronary Artery Disease Mild liver or renal disease Previous myocardial infarction Other Notes: HTN # of Emergency department Answers: 1-2 visits in the last 6 months Score: 18 Date Signed: 06/10/2018 12:07 PM Electronically Signed By:Fela Black RN [facility] CM Progress Note CM Note CM Note Notes: Pts case discussed in tx rounds. Pt is a 88 y/o female admitted for shortness of breath and a fever. Therapies have been ordered and awaiting recommendations. Needs are TBD at this time. CM to follow. Plan: TBD Date Signed: 06/06/2018 11:46 AM Electronically Signed By:JHOANA Hargrove [facility] CM Progress Note CM Note CM Note Notes: Pts case discussed in tx rounds. CM met w/ pt and pts daughter for dispo planning. Therapies are recommending SNF. Pt is not interested in SNF at this time. Daughter reports that she will be able to talk pt into SNF. A referral requested to be made to [facility]. Referral sent. Non triggering pasrr completed. Daughter is requesting for a private room. Daughter reports that she called pts insurance today and was informed that her insurance would cover multiple hours per week of skilled care. Daughter was thinking that pt could go home w/ HC if she improved and if she could get multiple hours of help. Daughter was given a list of skilled HC by the insurance that could provide the multiple hours of service. CM to follow. Plan: SNF vs HC Date Signed: 06/07/2018 11:53 AM Electronically Signed By:JHOANA Hargrove [facility] CM Progress Note CM Note CM Note Notes: CM spoke to Dr. Blas regarding d/c POC. Dr. Blas and pts daughter discussed hospice. Dr. Blas is thinking that pt may qualify under critcal/end stage aortic stenosis. CM spoke to pts daughter about hospice. Daughter still wants pt to go to SNF and pursue care. [facility] able to accept and provide private room. Daughter ok w/ referral sent to a hospice agency. Referral send to [facility] will contact pts daughter directly. CM to follow. Plan: [facility] Date Signed: 06/07/2018 02:41 PM Electronically Signed By:JHOANA Hargrove [facility] LOPE[facility] Progress Note CM Mumtaz MARROQUIN Note Notes: Trinity from [facility] will be coming in tomorrow for 10AM to meet w/ daughter and pt for an informational hospice meeting. Date Signed: 06/07/2018 05:07 PM Electronically Signed By:JHOANA Hargrove [facility] Progress Note LOPEZ Note LOPEZ Note Notes: Physician spoke with pt's daughter who had been wanting pt to go to SNF and after conversation with hospitalist, dtr decided pt could go home with hospice. Pt and daughter met with medical customer service representative of [facility] for informational meeting and daughter has decided to go with [facility]. Information faxed to [facility] (not on Allscripts) and they are in the process of obtaining authorization. Kristin from [facility] confirmed that they are able to provide nebulizers for bronchitis which was a concern of the daughter, and dtr would like that set up on the day of discharge so there is not a hiatus in treatment. Pt may also need flu shot before discharge. CM to follow. Date Signed: 06/08/2018 04:16 PM Electronically Signed By:Kim Mistry [facility] CM Progress Note CM Note CM Note Notes: Per RN daughter is very anxious and states she is still trying to get everything together to accommodate the patient's dc to home with hospice. The patient will dc tomorrow with [facility]. Plan: As above. Date Signed: 06/09/2018 01:24 PM Electronically Signed By:Giovanna Lemus RN Case Management Discharge Plan Note Case Management Discharge Discharge Order Complete? Answers: Yes Patient to Obtain Answers: Other Notes: [facility] Medications Transportation Arranged Answers: Family/Friends Faxed Final Orders Answers: Yes Notes: [facility] Agency/Facility Transfer Answers: Yes Notes: [facility] Report Printed & Faxed to Receiving Agency Family Notified Answers: Yes Notes: daughter to transport Discharge Comments Notes: 06/10/2018 Case Maagement Note Pt discharged home with [facility]. Notified JOSE Foster with [facility], of d/c orders. Faxed via [employer] as [facility] does not use allscripts. Notified Family. Daughter to transport home. Nancy GARCIA to meet pt at home with daughter. No further case management d/c needs identified. Date Signed: 06/10/2018 12:10 PM Electronically Signed By:Fela Black RN Intervention Information Intervention Type:*Incorrect Registration Date of Service:06/06/2018 08:43 AM Patient Type:Observation Staff Member:JOSE Arroyo, [facility] Hours: Discipline: Severity: Comment: Intervention Type:*IM-Signed Date of Service:06/10/2018 10:26 AM Patient Type:Inpatient Staff Member:Rajni Carranza Hours: Discipline: Severity: Comment:
== END 2018-06-10 14:01 | disposition hospice, home (50) | DRG 291 ==
LOC: OBSVTOIN 19:13 → F2W 06-06 06:43
PROVIDERS: ADMIT Internal Medicine; ATTEND Hospitalist
DX: I50.33 Acute on chronic diastolic (congestive) heart failure (principal); J00 Acute nasopharyngitis [common cold]; B34.8 Other viral infections of unspecified site; J96.01 Acute respiratory failure with hypoxia; I35.0 Nonrheumatic aortic (valve) stenosis; I25.10 Atherosclerotic heart disease of native coronary artery without angina pectoris; I24.9 Acute ischemic heart disease, unspecified; I25.2 Old myocardial infarction; Z95.1 Presence of aortocoronary bypass graft; A04.72 Enterocolitis due to Clostridium difficile, not specified as recurrent; I95.89 Other hypotension; N18.3 Chronic kidney disease, stage 3 (moderate); G47.33 Obstructive sleep apnea (adult) (pediatric); I27.29 Other secondary pulmonary hypertension; Z99.81 Dependence on supplemental oxygen; E78.5 Hyperlipidemia, unspecified; I10 Essential (primary) hypertension; Z96.641 Presence of right artificial hip joint
CPT/HCPCS: 84484-PO; 85520-90; 96374; 97116-GP; 97162-GP; 97165-GO; 97535-GO; G8978-GP-CL; G8979-GP-CI; G8987-GO-CI; G8988-GO-CI; J1644; J1940; J3475